=== PATIENT | female | born 1940 | race Two or more races ===

== ENCOUNTER 2018-12-27 09:38 | Emergency (ER) | payer OTHER, MEDICAID ==
[~2018-12-27] VITALS: Ht 152.4 cm; Wt 54.4 kg
[2018-12-27] MEDS ORDERED: CALCIUM CHLOR(10%) 100MG/ML 10ML SYRINGE IV ONE (09:39)
[2018-12-27] MEDS ORDERED: SODIUM BICARBONATE 8.4% INJ 50ML SYRINGE IV ONE (09:39)
[2018-12-27] MEDS ORDERED: EPINEPHrine HCL 1 MG/10 ML SYRG IV ONE (09:39)
[2018-12-27] MEDS ORDERED: NOREPINEPHRINE 8 MG/250ML KIT 250 ML IV ONE ×2 (09:50→10:00)
[2018-12-27 09:51] VITALS: BP 83/46
[2018-12-27] MEDS ORDERED: SODIUM BICARBONATE 8.4 % INJ 50ML VIAL IV ONE (09:57)
[2018-12-27] MEDS ORDERED: MIDAZOLAM DRIP 50 mg/50mL 50 ML IV SCH (09:58)
[2018-12-27] MEDS ORDERED: NOREPINEPHRINE 8 MG/250ML KIT 250 ML IV SCH (09:58)
== END 2018-12-27 10:27 | disposition expired ==
LOC: ER 09:38 → EDBD 09:38 → ER 10:27
DX: I46.9 Cardiac arrest, cause unspecified (principal); E11.9 Type 2 diabetes mellitus without complications; I10 Essential (primary) hypertension
CPT/HCPCS: 31500; 36600; 82805; 87070; 87077; 87186; 87205; 92950; 93005; 94761; 99291; J0171; J7030; 94002